=== PATIENT | male | born 1985 | race Caucasian/White ===

== ENCOUNTER 2017-10-03 12:14 | Emergency (ER) | payer OTHER ==
[~2017-10-03] VITALS: Ht 180.3 cm; Wt 72.6 kg
[2017-10-03] MEDS ORDERED: DIPHENHIST50 MG PO ×2 (12:20→12:40)
[2017-10-03] MEDS ORDERED: EYE ALLERGY REL15 M1 OPHTHALMIC (12:21)
[2017-10-03] MEDS ORDERED: PREDNISONE50 MG PO (12:40)
[2017-10-03 12:58] VITALS: BP 139/92
== END 2017-10-03 12:58 | disposition home or self-care (01) ==
LOC: M.ERS 12:14
DX: H10.11 Acute atopic conjunctivitis, right eye (principal)